=== PATIENT | female | born 1990 | race Two or more races ===

== ENCOUNTER 2022-03-28 09:16 | Emergency (ER) | payer OTHER ==
[~2022-03-28] VITALS: Ht 157.5 cm; Wt 86.6 kg
[~2022-03-28 09:16] MED LIST: CEPHALEXIN500 MG PO; ONDANSETRON4 MG/2 M1; PREVACID15 M1 PO
== END 2022-03-28 13:47 | disposition home or self-care (01) ==
LOC: ER 09:16
DX: O26.892 Other specified pregnancy related conditions, second trimester (principal); Z3A.20 20 weeks gestation of pregnancy; R10.2 Pelvic and perineal pain